=== PATIENT | male | born 1945 | race Caucasian/White ===

== ENCOUNTER 2019-05-12 11:49 | Inpatient (IN) | payer MEDICARE ==
--- NOTE | 2019-05-05 09:07 | HP ---
HISTORY AND PHYSICAL: DATE OF ADMISSION/SURGERY: 05/12/19 DATE OF OFFICE VISIT: 05/04/19 SURGEON: Ondina Tejeda MD * (DICTATED BY MOOK GIBBONS) PROCEDURE: Left total knee arthroplasty. CHIEF COMPLAINT: Left knee pain. HISTORY OF PRESENT ILLNESS: Mr. Mathews is a 73-year-old gentleman with severe end- stage osteoarthritis of the left knee. He has failed conservative treatment and elected to proceed with left total knee arthroplasty. PAST MEDICAL HISTORY: Hypertension, high cholesterol, GERD, and chronic mild renal disease. PAST SURGICAL HISTORY: Appendectomy, hernia repair, cholecystectomy, and cyst removal. CURRENT MEDICATIONS: 1. Fenofibrate 145 mg daily. 2. Lansoprazole 30 mg a day. 3. Labetalol 100 mg twice a day. 4. Amlodipine 10 mg a day. 5. Vitamin D. 6. Tadalafil 5 mg daily. 7. Aspirin 81 mg daily. 8. Citracal. ALLERGIES: No known drug allergies. FAMILY HISTORY: Diabetes, chronic kidney disease, and cancer. SOCIAL HISTORY: He is a 73-year-old gentleman, lives with his . He does not smoke or use drugs. REVIEW OF SYSTEMS: A complete 14-point review of systems was reviewed with the patient, is positive for GERD and mild kidney disease. He denies history of DVT , PE, hepatitis, HIV, or anesthesia problems. PHYSICAL EXAMINATION GENERAL: He is well developed, well nourished, in no acute distress. VITAL SIGNS: He stands 74 inches tall, weighs 275 pounds, blood pressure is 122 /78. His heart rate is 58. HEENT: Normocephalic, atraumatic. NECK: Supple. No palpable lymph nodes. PULMONARY: Lungs are clear to auscultation bilaterally. CARDIO: Regular rate and rhythm. Strong S1 and S2. ABDOMEN: Soft, nontender, nondistended. MUSCULOSKELETAL: Left lower extremity: The skin is intact. There are no open wounds or abrasions. There is a moderate effusion of the left knee joint. He has some tenderness along the medial joint line. Range of motion is 10 to 100 degrees of flexion with patellofemoral crepitus. He is able to dorsiflex and plantarflex. He has 2+ dorsalis pedis pulses and intact sensation. NEUROLOGICAL: He is alert and oriented x3. ASSESSMENT AND PLAN: Mr. Mathews is a 73-year-old gentleman with severe end- stage osteoarthritis of the left knee. He has failed conservative treatment and elected to proceed with left total knee arthroplasty. The surgery is scheduled for 05/12/[address] Tejeda discussed the risks and benefits of the surgery at today's visit and all of his questions were answered. He will follow up with Dr. Tejeda 2 weeks after the surgery. MOOK GIBBONS [id number]/[facility] #: [id number] [email or web address]
[~2019-05-12 11:49] MED LIST: Buffered Lidocaine 1% SYRIN* 1 ML/SYRINGE INTRADERM ONE; Lactated Ringers 1000 ML Bag* 1,000 ML IV SCH
--- OUTSIDE RECORDS SUMMARY | 2019-05-12 11:55 | XMS REPORT | Continuity of Care Document ---
:1945 External Reference #:[id number] Author Name Ondina Tejeda M.D. (transmitted by agent of provider Blanca Robbins) Address [address] [place] [address] Care Team Providers Name Role Phone Luigi Pereira MD - Internal Medicine Care Team Information Clear Coat Sprayer [phone] Problems Active Problems Provider Date Localized, primary osteoarthritis Ondina Tejeda M.D. Onset: 04/04/2019 Social History Type Date Description Comments Sex Unknown ETOH Use Denies alcohol use Tobacco Use Start: Unknown End: Patient is a former quit 39 years ago Unknown smoker Smoking Status Reviewed: 05/04/19 Patient is a former quit 39 years ago smoker Exercise Exercises sporadically Type/Frequency Allergies, Adverse Reactions, Alerts Description No Known Drug Allergies Medications Active Medications SIG Qnty Indications Ordering Provider Date Fenofibrate 1 by mouth every Unknown 145mg Tablets day Lansoprazole 1 by mouth every Unknown 30mg day Capsules Labetalol HCL take 1 tablet by Unknown 100mg mouth twice a day Tablets Amlodipine Besylate 1 by mouth every Unknown 10mg day Tablets Vitamin D2 take 50,000 units Unknown 2000Unit once a week Tablets Tadalafil 1 by mouth every Unknown 5mg Tablets day Ray Aspirin Ec Low Stopped Unknown Dose 81mg Tablets DR Immunizations Description No Information Available Vital Signs Date Vital Result Comment 05/04/2019 10:17am Height 74 inches 6'2" Weight 275.00 lb Heart Rate 58 /min BP Systolic 122 mmHg BP Diastolic 78 mmHg Pain Level 1 BMI (Body Mass Index) 35.3 kg/m2 04/04/2019 10:49am Height 74 inches 6'2" Weight 275.00 lb Heart Rate 65 /min BP Systolic 142 mmHg BP Diastolic 84 mmHg Respiratory Rate 16 /min Body Temperature 97.0 F Pain Level 3 BMI (Body Mass Index) 35.3 kg/m2 Results Description No Information Available Procedures Description No Information Available Medical Devices Description No Information Available Encounters Type Date Location Provider Dx Diagnosis Office Visit 04/04/2019 [facility] Ondina Tejeda, M25.562 Pain in left knee 10:45a at [facility] M25.462 Effusion, left knee M17.12 Unilateral primary osteoarthritis, left knee Assessments Date Code Description Provider 05/04/2019 M17.12 Unilateral primary osteoarthritis, left knee Ondina Tejeda M.D. 05/04/2019 M25.462 Effusion, left knee Ondina Tejeda M.D. 05/04/2019 M25.562 Pain in left knee Ondina Tejeda M.D. 04/04/2019 M25.562 Pain in left knee Ondina Tejeda M.D. 04/04/2019 M25.462 Effusion, left knee Ondina Tejeda M.D. 04/04/2019 M17.12 Unilateral primary osteoarthritis, left knee Ondina Tejeda M.D. Plan of Treatment Future Appointment(s):05/30/2019 10:00 am - Ondina Tejeda M.D. at [facility] at [place]0705/12/2019 2:30 pm - Anthony Bunch PA-C at [facility] at [place]1705/12/2019 2:30 pm - MOOK Santillan at [facility] at Lptlfx5405/12/2019 2:30 pm - Ondina Tejeda M.D. at [facility] at Ctfdsu9705/04/2019 - Ondina Tejeda M.D.M17.12 Unilateral primary osteoarthritis, left kneeFollow up:Follow up: 2 weeks after vpasvwzT62.462 Effusion, left kneeM25.562 Pain in left knee Functional Status Description No Information Available Mental Status Description No Information Available Referrals Description No Information Available
--- OUTSIDE RECORDS SUMMARY | 2019-05-12 11:55 | XMS REPORT | Continuity of Care Document ---
:1945 External Reference #:[id number] Author Name Ondina Tejeda M.D. (transmitted by agent of provider Shazia Moe) Address [address] [place] [address] Care Team Providers Name Role Phone Luigi Pereira MD - Internal Medicine Care Team Information [employer] Roller Problems Active Problems Provider Date Localized, primary osteoarthritis Ondina Tejeda M.D. Onset: 04/04/2019 Social History Type Date Description Comments Sex Unknown ETOH Use Denies alcohol use Tobacco Use Start: Unknown End: Patient is a former quit 39 years ago Unknown smoker Smoking Status Reviewed: 04/04/19 Patient is a former quit 39 years ago smoker Exercise Exercises sporadically Type/Frequency Allergies, Adverse Reactions, Alerts Description No Known Drug Allergies Medications Active Medications SIG Qnty Indications Ordering Provider Date Fenofibrate 1 by mouth every Unknown 145mg Tablets day Lansoprazole 1 by mouth every Unknown 30mg Capsules day Labetalol HCL take 1 tablet by Unknown 100mg Tablets mouth twice a day Amlodipine Besylate 1 by mouth every Unknown 10mg day Tablets Vitamin D2 take 50,000 Unknown 2000Unit Tablets units once a week Tadalafil 1 by mouth every Unknown 5mg Tablets day Ray Aspirin Ec Low Unknown Dose 81mg Tablets DR Immunizations Description No Information Available Vital Signs Date Vital Result Comment 04/04/2019 10:49am Height 74 inches 6'2" Weight 275.00 lb Heart Rate 65 /min BP Systolic 142 mmHg BP Diastolic 84 mmHg Respiratory Rate 16 /min Body Temperature 97.0 F Pain Level 3 BMI (Body Mass Index) 35.3 kg/m2 Results Description No Information Available Procedures Description No Information Available Medical Devices Description No Information Available Encounters Description No Information Available Assessments Date Code Description Provider 04/04/2019 M25.562 Pain in left knee Ondina Tejeda M.D. 04/04/2019 M25.462 Effusion, left knee Ondina Tejeda M.D. 04/04/2019 M17.12 Unilateral primary osteoarthritis, left knee Ondina Tejeda M.D. Plan of Treatment Future Appointment(s):05/04/2019 10:00 am [facility]12[facility] 2:30 pm - Ondina Tejeda M.D. at [facility]04/04/2019 - Ondina Tejeda M.D.M25.562 Pain in left kneeFollow up:Follow up: 7-10 days before [id number] Effusion, left kneeM17.12 Unilateral primary osteoarthritis, left knee Functional Status Description No Information Available Mental Status Description No Information Available Referrals Description No Information Available
--- OUTSIDE RECORDS SUMMARY | 2019-05-12 11:55 | XMS REPORT | Continuity of Care Document ---
:1945 Author Organization [facility] Care Team Providers Name Role Phone KRISTYN WILLIAMSON Admitting Physician KRISTYN WILLIAMSON Attending Physician KRISTYN WILLIAMSON Primary Care Physician Allergies and Intolerances No Known Allergies Medications RxNorm Medication Dose Route Instructions Start Date End Date Status 1191 Aspirin 81 mg oral orally every day Active 91187 Azithromycin (500 mg x 1 Active day, then 250 mg x 4 days) 5279632 Calcium Citrate 500 mg oral orally every day Active 2376 MG Effervescent Oral Tablet 4018 Ergocalciferol 1.25. mg oral orally every day Active 471509 Fenofibrate 150 MG 150 mg oral orally every day Active Oral Capsule 788279 irbesartan 150 MG 150 mg oral orally every day Active Oral Tablet 737181 lansoprazole 30 MG 30 mg oral orally every day Active Delayed Release at bedtime Oral Capsule 727948 Prednisone 20 MG 20 mg oral orally every day Active Oral Tablet (5 days) (administer with food or milk) 208928 tadalafil 5 MG Oral 5 mg oral orally every day Active Tablet Medications At Time Of Discharge RxNorm Medication Dose Route Instructions Start Date End Date Status 1191 Aspirin 81 mg oral orally every day Active 70315 Azithromycin (500 mg x 1 Active day, then 250 mg x 4 days) 3164209 Calcium Citrate 500 mg oral orally every day Active 2376 MG Effervescent Oral Tablet 4018 Ergocalciferol 1.25. mg oral orally every day Active 646204 Fenofibrate 150 MG 150 mg oral orally every day Active Oral Capsule 20000303 irbesartan 150 MG 150 mg oral orally every day Active Oral Tablet 601754 lansoprazole 30 MG 30 mg oral orally every day Active Delayed Release at bedtime Oral Capsule 210889 Prednisone 20 MG 20 mg oral orally every day Active Oral Tablet (5 days) (administer with food or milk) 118403 tadalafil 5 MG Oral 5 mg oral orally every day Active Tablet Problems Code Code System Problem Name Start Date End Date Status 873792122 SNOMED-CT Acute and chronic cholecystitis 07/16/2014 U Active 215001535 SNOMED-CT Neutrophilia 07/16/2014 U Active 252025531 SNOMED-CT Poorly controlled type 2 DM 07/16/2014 U Active 949851462 SNOMED-CT Good hypertension control 07/16/2014 U Active 66224364 SNOMED-CT Biliary sludge 07/16/2014 U Active Excision of dysplastic nevus from 2010 U Active back 726327454 SNOMED-CT Dysplastic nevus of skin 2010 U Active Negative Lexiscan for ischemia 2009 U Active 91395031 SNOMED-CT Acute pericarditis 2009 U Active 029517460 SNOMED-CT Patient in hospital 2009 U Active 68140350 SNOMED-CT Polyp of colon 2005 U Active 537614964 SNOMED-CT Colonoscopy abnormal 2006 U Active 70721309 SNOMED-CT Hypertensive disorder U Active 31570657 SNOMED-CT Hypercholesterolemia U Active 609165235 SNOMED-CT Gastroesophageal reflux disease U Active 3697657 SNOMED-CT Pericarditis U Active 873229817 SNOMED-CT Diabetic on diet only U U Active 880310260 SNOMED-CT Gastroesophageal reflux disease U U Active Procedures Code Code System Procedure Date 33915554 SNOMED CT Appendectomy U 15311726 SNOMED [address] Hernia repair U 007310263 SNOMED [address] Tonsillectomy U 070053601 SNOMED CT Tonsillectomy U 575200561 SNOMED CT Incisional hernia repair [address] Appendectomy [address] Esophagogastroduodenoscopy [address] Colonoscopy U Results Laboratory Results Order: COMPREHENSIVE PANEL Specimen Source : Body Site: Legend: (G,H) = High, (GG,HH,CH,#H) = Above High Threshold, (#,L) = Low, (##,CL,#L,LL) = Below Low Threshold, (C,CC,CA,#A,A) = Abnormal LOINC Test Result Flag Range Units Date 2951-2 1Sodium SerPl-sCnc 141 136-145 mmol/L 03/07/2019 08:42 2823-3 1Potassium SerPl-sCnc 4.5 3.5-5.2 mmol/L 03/07/2019 08:42 2075-0 1Chloride SerPl-sCnc 109 H 100-108 mmol/L 03/07/2019 08:42 8-9 1CO2 SerPl-sCnc 25 21-32 mmol/L 03/07/2019 08:42 2345-7 1Glucose SerPl-mCnc 129 H 70-100 mg/dL 03/07/2019 08:42 3094-0 1BUN SerPl-mCnc 15 7-21 mg/dL 03/07/2019 08:42 2160-0 1Creat SerPl-mCnc 1.3 0.6-1.3 mg/dL 03/07/2019 08:42 Interpretive Jacqueline: 1Normal Kidney Function or Mild Disease - GFR >OR= 60 Chronic Kidney Disease - GFR 15-59 Renal Failure - GFR < 15 GFR not calculated on patients under 18 years of age. Calculated (estimated) GFR is based on the MDRD Study equation, which assumes a steady state for creatinine. Estimated GFR may not be appropriate for medication dosing. 63848-9 1Ca-I SerPl-mCnc 9.8 8.5-10.8 mg/dL 03/07/2019 08:42 33530-0 1GFR/BSA.pred SerPl-ArVRat 56 03/07/2019 08:42 76823-0 1Bilirub Bld-mCnc 0.7 0.0-1.2 mg/dL 03/07/2019 08:42 2885-2 1Prot SerPl-mCnc 6.4 6.4-8.2 gm/dL 03/07/2019 08:42 1751-7 1Albumin SerPl-mCnc 4.3 3.2-4.6 gm/dL 03/07/2019 08:42 6768-6 1ALP SerPl-cCnc 47 40-150 U/L 03/07/2019 08:42 1742-6 1ALT SerPl-cCnc 22 0-55 U/L 03/07/2019 08:42 1920-8 1AST SerPl-cCnc 24 5-37 U/L 03/07/2019 08:42 Performing Lab Footnotes:[facility] - [id number] - [address] [place] [address] DEYANIRA BLACKMANOMD1 Social History Code Code System Social History Observation Description Dates Observed 800613947 SNOMED CT Current Smoking Status Never smoker UNK AdministrativeGender Sex Assigned At Unknown Vital Signs No data in the system Goals Section No data in the system Health Concerns No data in the systemEncounter Diagnosis Date Code Code System Diagnosis Status E11.9 ICD10 TYPE 2 DM WITHOUT COMPLICATIONS Active Advance Directives *RHIO - CONSENT IS YES Directive Type Effective Date Merchandise Marker Notes Supporting Document Name Address Phone No Directive Type 10/10/2016 9:59:40 Not Specified Not Specified Not Specified None No specified [facility] Directive Type Effective Date Merchandise Marker Notes Supporting Document Name Address Phone No Directive 07/16/2014 Not Specified Not Specified Not Specified juan tyrone No Type specified 10:45:21 AM () [phone] [facility] Directive Type Effective Date Merchandise Marker Notes Supporting Document Name Address Phone No Directive Type 07/16/2014 Not Specified Not Specified Not Specified None No specified 10:45:06 AM Encounters Encounter Diagnosis Location Date TYPE 2 DM WITHOUT COMPLICATIONS [facility] 03/07/2019 Functional Status No data in the system Immunizations Vaccine Code Code System Vaccine Name Date Status UNSURE TETANUS Completed INFLUENZA 2016 Completed Medical Equipment No data in the system Mental Status No data in the system Assessment and Plan Assessments No data in the systemPlan Of Treatment No data in the systemPending Tests No data in the system Hospital Discharge Instructions No data in the system Reason for Visit No data in the system
--- OUTSIDE RECORDS SUMMARY | 2019-05-12 11:55 | XMS REPORT | Continuity of Care Document ---
:1945 Author Organization [facility] Care Team Providers Name Role Phone KRISTYN WILLIAMSON Admitting Physician KRISTYN WILLIAMSON Attending Physician KRISTYN WILLIAMSON Primary Care Physician Allergies and Intolerances No Known Allergies Medications RxNorm Medication Dose Route Instructions Start Date End Date Status 1191 Aspirin 81 mg oral orally every day Active 67092 Azithromycin (500 mg x 1 Active day, then 250 mg x 4 days) 1753460 Calcium Citrate 500 mg oral orally every day Active 2376 MG Effervescent Oral Tablet 4018 Ergocalciferol 1.25. mg oral orally every day Active 557992 Fenofibrate 150 MG 150 mg oral orally every day Active Oral Capsule 019705 irbesartan 150 MG 150 mg oral orally every day Active Oral Tablet 099327 lansoprazole 30 MG 30 mg oral orally every day Active Delayed Release at bedtime Oral Capsule 424526 Prednisone 20 MG 20 mg oral orally every day Active Oral Tablet (5 days) (administer with food or milk) 826241 tadalafil 5 MG Oral 5 mg oral orally every day Active Tablet Medications At Time Of Discharge RxNorm Medication Dose Route Instructions Start Date End Date Status 1191 Aspirin 81 mg oral orally every day Active 27689 Azithromycin (500 mg x 1 Active day, then 250 mg x 4 days) 0787756 Calcium Citrate 500 mg oral orally every day Active 2376 MG Effervescent Oral Tablet 4018 Ergocalciferol 1.25. mg oral orally every day Active 251382 Fenofibrate 150 MG 150 mg oral orally every day Active Oral Capsule 20000303 irbesartan 150 MG 150 mg oral orally every day Active Oral Tablet 857514 lansoprazole 30 MG 30 mg oral orally every day Active Delayed Release at bedtime Oral Capsule 183412 Prednisone 20 MG 20 mg oral orally every day Active Oral Tablet (5 days) (administer with food or milk) 458788 tadalafil 5 MG Oral 5 mg oral orally every day Active Tablet Problems Code Code System Problem Name Start Date End Date Status 684081975 SNOMED-CT Acute and chronic cholecystitis 07/16/2014 U Active 424473887 SNOMED-CT Neutrophilia 07/16/2014 U Active 169297325 SNOMED-CT Poorly controlled type 2 DM 07/16/2014 U Active 931929754 SNOMED-CT Good hypertension control 07/16/2014 U Active 12927467 SNOMED-CT Biliary sludge 07/16/2014 U Active Excision of dysplastic nevus from 2010 U Active back 880414349 SNOMED-CT Dysplastic nevus of skin 2010 U Active Negative Lexiscan for ischemia 2009 U Active 32217512 SNOMED-CT Acute pericarditis 2009 U Active 226023919 SNOMED-CT Patient in hospital 2009 U Active 28991850 SNOMED-CT Polyp of colon 2005 U Active 583852641 SNOMED-CT Colonoscopy abnormal 2006 U Active 84404155 SNOMED-CT Hypertensive disorder U Active 24349395 SNOMED-CT Hypercholesterolemia U Active 159132933 SNOMED-CT Gastroesophageal reflux disease U Active 2154109 SNOMED-CT Pericarditis U Active 864668533 SNOMED-CT Diabetic on diet only U U Active 780776845 SNOMED-CT Gastroesophageal reflux disease U U Active Procedures Code Code System Procedure Date 69766151 SNOMED CT Appendectomy U 90375754 SNOMED [place] Hernia repair U 601456006 SNOMED CT Tonsillectomy U 804553462 SNOMED CT Tonsillectomy U 99728[address] Incisional hernia repair [address] Appendectomy [address] Esophagogastroduodenoscopy [address] Colonoscopy U Results Laboratory Results Order: CBC Specimen Source: Body Site: Legend: (G,H) = High, (GG,HH,CH,#H) = Above High Threshold, (#,L) = Low, (##,CL, #L,LL) = Below Low Threshold, (C,CC,CA,#A,A) = Abnormal LOINC Test Result Flag Range Units Date 6690-2 1WBC # Bld Auto 7.1 4.8-10.8 K/uL 04/20/2019 09:05 53847-3 1RBC # Bld 5.34 4.60-6.20 M/uL 04/20/2019 09:05 718-7 1Hgb Bld-mCnc 15.5 13.5-18.0 gm/dL 04/20/2019 09:05 4544-3 1Hct VFr Bld Auto 44.9 41.0-53.0 % 04/20/2019 09:05 787-2 1MCV RBC Auto 84.1 80.0-100.0 fL 04/20/2019 09:05 16815-5 1MCHC RBC-mCnc 34.4 30.0-36.5 % 04/20/2019 09:05 87873-6 1MCH RBC Qn 29.0 27.0-34.0 pg 04/20/2019 09:05 16702-6 1RDW RBC 12.8 11.0-15.0 % 04/20/2019 09:05 777-3 1Platelet # Bld Auto 187 130-450 K/uL 04/20/2019 09:05 29806-7 1PMV Bld Auto 8.3 6.0-12.0 fL 04/20/2019 09:05 Performing Lab Footnotes:[facility] - [id number] - [address] [place] [address] DEYANIRA HILL Order: COMPREHENSIVE PANEL Specimen Source: Body Site: Legend: (G,H) = High, (GG,HH,CH,#H) = Above High Threshold, (#,L) = Low, (##,CL,#L,LL) = Below Low Threshold, (C,CC,CA,#A,A) = Abnormal LOINC Test Result Flag Range Units Date 2951-2 1Sodium SerPl-sCnc 140 136-145 mmol/L 04/20/2019 09:05 2823-3 1Potassium SerPl-sCnc 4.4 3.5-5.2 mmol/L 04/20/2019 09:05 5-0 1Chloride SerPl-sCnc 107 100-108 mmol/L 04/20/2019 09:05 8-9 1CO2 SerPl-sCnc 23 21-32 mmol/L 04/20/2019 09:05 2345-7 1Glucose SerPl-mCnc 151 H 70-100 mg/dL 04/20/2019 09:05 3094-0 1BUN SerPl-mCnc 19 7-21 mg/dL 04/20/2019 09:05 2160-0 1Creat SerPl-mCnc 1.3 0.6-1.3 mg/dL 04/20/2019 09:05 Interpretive Jacqueline: 1Normal Kidney Function or Mild Disease - GFR >OR= 60 Chronic Kidney Disease - GFR 15-59 Renal Failure - GFR < 15 GFR not calculated on patients under 18 years of age. Calculated (estimated) GFR is based on the MDRD Study equation, which assumes a steady state for creatinine. Estimated GFR may not be appropriate for medication dosing. 93464-1 1Ca-I SerPl-mCnc 9.8 8.5-10.8 mg/dL 04/20/2019 09:05 68338-0 1GFR/BSA.pred SerPl-ArVRat 54 04/20/2019 09:05 77652-1 1Bilirub Bld-mCnc 0.7 0.0-1.2 mg/dL 04/20/2019 09:05 2885-2 1Prot SerPl-mCnc 6.6 6.4-8.2 gm/dL 04/20/2019 09:05 1751-7 1Albumin SerPl-mCnc 4.4 3.2-4.6 gm/dL 04/20/2019 09:05 6768-6 1ALP SerPl-cCnc 49 40-150 U/L 04/20/2019 09:05 1742-6 1ALT SerPl-cCnc 26 0-55 U/L 04/20/2019 09:05 1920-8 1AST SerPl-cCnc 20 5-37 U/L 04/20/2019 09:05 Performing Lab Footnotes:[facility] - [id number] - [address] [place] [address] DEYANIRA BLACKMANOMD1 Order: PT/INR Specimen Source: Body Site: Legend: (G,H) = High, (GG,HH, CH,#H) = Above High Threshold, (#,L) = Low, (##,CL,#L,LL) = Below Low Threshold , (C,CC,CA,#A,A) = Abnormal LOINC Test Result Flag Range Units Date 59007-31 1PT Time PPP 12.8 H 9.4-12.4 sec 04/20/2019 09:05 6301-6 1INR PPP 1.2 04/20/2019 09:05 Interpretive Jacqueline: 1 INR INTERPERTATION 2.0-3.0 THERAPEUTIC MONITORING 2.5-3.5 HEART VALVE REPLACEMENT Performing Lab Footnotes:[facility] - [id number] - [address] [place] [address] DEYANIRA BLACKMANOMD1 Order: URINALYSIS ROUTINE Specimen Source: Body Site: Legend: (G,H) = High, (GG,HH,CH,#H) = Above High Threshold, (#,L) = Low, (##,CL,#L,LL) = Below Low Threshold, (C,CC,CA,#A,A) = Abnormal LOINC Test Result Flag Range Units Date 5778-6 1Color Ur YELLOW 04/20/2019 09:05 58627-9 1Turbidity Ur Ql CLEAR CLEAR 04/20/2019 09:05 5811-5 1Sp Gr Ur Strip 1.015 1.000-1.030 04/20/2019 09:05 5803-2 1pH Ur Strip 6.5 5.0-8.0 04/20/2019 09:05 96823-8 1WBC # Ur Strip NEGATIVE NEGATIVE 04/20/2019 09:05 5802-4 1Nitrite Ur Ql Strip NEGATIVE NEGATIVE 04/20/2019 09:05 5804-0 1Prot Ur Strip-mCnc NEGATIVE NEGATIVE mg/dL 04/20/2019 09:05 5792-7 1Glucose Ur Strip-mCnc NORMAL NORMAL mg/dL 04/20/2019 09:05 5797-6 1Ketones Ur Strip-mCnc NEGATIVE NEGATIVE mg/dL 04/20/2019 09:05 26195-7 1Urobilinogen Ur NORMAL NORMAL mg/dL 04/20/2019 09:05 Strip-mCnc 72462-4 1Bilirub Ur Strip-mCnc NEGATIVE NEGATIVE mg/dL 04/20/2019 09:05 5794-3 1Hgb Ur Ql Strip TRACE ! NEGATIVE 04/20/2019 09:05 Performing Lab Footnotes:[facility] - [id number] - [address] [place] [address] DEYANIRA HILL Order: URINE MICROSCOPIC Specimen Source: Body Site: Legend: (G,H) = High, (GG,HH,CH,#H) = Above High Threshold, (#,L) = Low, (##,CL,#L,LL) = Below Low Threshold, (C,CC,CA,#A,A) = Abnormal LOINC Test Result Flag Range Units Date 1URINE MICROSCOPIC EXAM 5821-4 1WBC #/area UrnS HPF 0-2 0-2 /HPF 04/20/2019 09:05 5808-1 1RBC # UrnS HPF 0-2 ! NONE SEEN /HPF 04/20/2019 09:05 Interpretive Jacqueline: 1The [employer] has defined Microscopic Hematuria as 3 or more RBC per high powered field from a single positive urinalysis with microscopy. 47843-0 1Bacteria UrnS Ql Micro NONE SEEN NONE SEEN /HPF 04/20/2019 09: 05 5787-7 1Epi Cells #/area UrnS HPF RARE ! NONE SEEN /HPF 04/20/2019 09:05 8247-9 1Mucous Threads UrnS Ql Micro TRACE ! NONE SEEN /HPF 04/20/2019 09:05 Performing Lab Footnotes:[facility] - [id number] - [address] [place] [address] DEYANIRA Segovia RICCIOMD1 Social History Code Code System Social History Observation Description Dates Observed 235056261 SNOMED CT Current Smoking Status Never smoker UNK AdministrativeGender Sex Assigned At Unknown Vital Signs No data in the system Goals Section No data in the system Health Concerns No data in the systemEncounter Diagnosis Date Code Code System Diagnosis Status I10 ICD10 ESSENTIAL PRIMARY HYPERTENSION Active Advance Directives *RHIO - CONSENT IS YES Directive Type Effective Date [employer] Supervisor Notes Supporting Document Name Address Phone No Directive Type 10/10/2016 9:59:40 Not Specified Not Specified Not Specified None No specified AM [facility] Directive Type Effective Date [employer] Supervisor Notes Supporting Document Name Address Phone No Directive 07/16/2014 Not Specified Not Specified Not Specified juan [email or web address] No Type specified 10:45:21 AM () [phone] LIV[facility] Directive Type Effective Date [employer] Supervisor Notes Supporting Document Name Address Phone No Directive Type 07/16/2014 Not Specified Not Specified Not Specified None No specified 10:45:06 AM Encounters Encounter Diagnosis Location Date ESSENTIAL PRIMARY HYPERTENSION [facility] 04/20/2019 Functional Status No data in the system Immunizations Vaccine Code Code System Vaccine Name Date Status UNSURE TETANUS Completed INFLUENZA 2015 Completed Medical Equipment No data in the system Mental Status No data in the system Assessment and Plan Assessments No data in the systemPlan Of Treatment No data in the systemPending Tests No data in the system Hospital Discharge Instructions No data in the system Reason for Visit No data in the system
--- OUTSIDE RECORDS SUMMARY | 2019-05-12 11:55 | XMS REPORT | Continuity of Care Document ---
:1945 External Reference #:[id number] Author Name Ondina Tejeda M.D. (transmitted by agent of provider Jess Orozco) Address [address] [place] [address] Care Team Providers Name Role Phone Luigi Pereira MD - Internal Medicine Care Team Information [employer]ctor Problems Active Problems Provider Date Localized, primary [...] knee Ondina Tejeda M.D. Plan of Treatment 04/04/2019 - Ondina Tejeda M.D.M25.562 Pain in left kneeNew Xrays:Knee 3 Views LT, Ordered: 04/04/19Follow up:Follow up: 7-10 days before swxrgilP65.462 Effusion, left kneeM17.12 Unilateral primary osteoarthritis, left knee Functional Status Description No Information Available Mental Status Description No Information Available Referrals Description No Information Available
[2019-05-12] MEDS ORDERED: Midazolam* 1 MG/ML 2 ML VIAL (2 MG) ONE (13:06)
[2019-05-12] MEDS ORDERED: Propofol* 10 MG/ML 20 ML BTL ONE ×3 (13:06→17:47)
[2019-05-12] MEDS ORDERED: ROPIVACAINE 5 MG/ML 30 ML BTL (0.5%) ONE ×2 (13:06→14:40)
[2019-05-12] MEDS ORDERED: Lidocaine 2% PF * 5 ML VIAL ONE (13:06)
[2019-05-12] MEDS ORDERED: fentaNYL* 50 MCG/ML 2 ML VIAL (100 MCG VIAL) ONE (13:07)
[2019-05-12] MEDS ORDERED: Dexmedetomidine* 200 MCG/2 ML 2 ML VIAL ONE (13:07)
[2019-05-12] MEDS ORDERED: ceFAZolin 2 GM in NS PREMIX(*) 2 GM/100 ML BAG IVPB ONE (13:33)
[2019-05-12] MEDS ORDERED: Bupivacaine 0.5% SDV PF* 30ML VIAL ONE (15:21)
[2019-05-12] MEDS ORDERED: Propofol* 500 MG/50 ML BTL ONE ×2 (15:32→16:36)
[2019-05-12] MEDS ORDERED: KETAMINE HCL* 50 MG/ML 10 ML VIAL ONE (15:33)
[2019-05-12] MEDS ORDERED: HYDROmorphone INJ1* 1 MG/ML SYRINGE IV PRN (16:24)
[2019-05-12] MEDS ORDERED: Naloxone* 0.4 MG/ML 1 ML VIAL IV PRN (16:24)
[2019-05-12] MEDS ORDERED: Acetaminophen IV 1GM/100ML * 10 MG/ML VIAL IVPB ONE (16:24)
[2019-05-12] MEDS ORDERED: Ketorolac INJ* 30 MG/ML 1 ML VIAL IV PRN (16:24)
[2019-05-12] MEDS ORDERED: oxyCODONE TAB* 5 MG TAB PO PRN (16:24)
[2019-05-12] MEDS ORDERED: Acetaminophen TAB* 325 MG PO PRN (17:14)
[2019-05-12] MEDS ORDERED: oxyCODONE/Acetamin 5/325 MG* TAB PO PRN (17:14)
[2019-05-12] MEDS ORDERED: Cyclobenzaprine TAB* 10 MG PO PRN (17:14)
[2019-05-12] MEDS ORDERED: Ondansetron ODT TAB* 4 MG PO PRN (17:14)
[2019-05-12] MEDS ORDERED: Morphine INJ* 2 MG/ML 1 ML SYRINGE (TWO MG - NEW SYRINGE VERSION) IV PRN (17:14)
[2019-05-12] MEDS ORDERED: diPHENhydraMINE IV* 50 MG/ML 1 ml VIAL (BENADRYL) IV PRN (17:14)
[2019-05-12] MEDS ORDERED: Magnesium Hydroxide LIQ* 30 ML UDC PO PRN (17:14)
[2019-05-12] MEDS ORDERED: Ondansetron INJ* 2 MG/ML VIAL IV PRN (17:14)
[2019-05-12] MEDS ORDERED: diPHENhydraMINE PO* 25 MG PO PRN (17:14)
--- NOTE | 2019-05-12 18:47 | CONSULT ---
Consult Consult: HOSPITALIST CONSULTATION Requesting Provider: Dr. Tejeda Reason for Consultation: Medical co-management HPI: Mr Mathews is a 73 yo M who has a h/o HTN, HLD, mild CKD (? stage) and GERD who is admitted following an elective L TKA. He unfortunately failed conservative therapy for his severe OA. Currently he denies any pain in the knee. All he repeatedly states is "this is strange, I feel woozy." PMHx: HTN, HLD, GERD, mild CKD PSHx: L TKA, appendectomy, hernia repair, cholecystectomy, cyst removal ALL: NKDA Meds: current and home medication list personally reviewed FamHx: Both parents are , he could not tell me any of their medical history. SocHx: Pt does not smoke or drink alcohol. He is . ROS: No c/o chest pain, SOB, abdominal issues. No pain in the L knee. The rest of the ROS is negative. PE: BP 132/73 HR 60 RR 12 T 98.2 O2 sat 97% on RA gen: Elderly male lying in bed, awake, NAD HEENT: EOMI, oropharynx is clear Card: nl S1S2 RRR, no LE edema Lungs: CTA anteriorly Abd: BS+ soft, NT, ND Ext: L LE in post-op dressing, moves upper extremities symmetrically Neuro: UE strength normal, LE strength not tested at this time Psych: Alert, mildly confused A/P: Mr Mathews is a 73 yo M who has a h/o HTN, HLD, CKD and severe OA of the L knee who underwent elective L total knee arthroplasty with Dr. Tejeda and is now being seen for medical consultation. 1. s/p L TKA: post-operative management per orthopedics including pain control and DVT prophylaxis. 2. HTN: BP is under good control. Will resume labetolol but will place hold parameters. Hold amlodipine for now. 3. HLD: Hold fenofibrate until discharge. 4. CKD: Will get BMP tomorrow AM. 5. Hospitalist service will continue to follow.
[2019-05-12] MEDS ORDERED: Acetaminophen IV 1GM/100ML * 100 ML ONE (19:17)
[2019-05-12] MEDS ORDERED: Ketorolac INJ* 30 MG/ML 1 ML VIAL ONE (19:17)
[2019-05-12] MEDS: Lactated Ringers 1000 ML Bag* 1,000 ML IV SCH (20:18)
--- NOTE | 2019-05-12 20:25 | OP ---
Operative Report - Blank - Operative Report Date of Operation: 05/12/19 Note: ROSA MCCLOUD 1945 Date of Surgery: 05/12/19 Ondina Tejeda MD Professional Skater: Ziyad DELVALLE did help throughout the procedure with preparation of the knee, wound retraction, manipulation of the knee, and wound closure. Anesthesiologist: Joel Borden MD Anesthesia Type: Spinal Preoperative Diagnosis: Left severe degenerative osteoarthritis of the knee Postoperative Diagnosis: As above Procedure Performed: Left Total Knee Arthroplasty Tourniquet time: 52 minutes Complications: None Specimen: Bone and cartilage from the left knee joint sent to pathology. Hardware Used: Cemented Quigley and Nephew total knee hardware was used - For the femur a size 8 left oxinium legion posterior stabilized femoral component, for the tibia a size 7 left china II tibial baseplate, for the insert a size 9mm 7 -8 posterior stabilized articular polyethylene insert, and for the patella a size 38 3-peg all poly patella. Brief History/Indication: ROSA MCCLOUD was known in clinic and had a history of severe left knee pain and swelling. He failed conservative treatment with anti-inflammatories, pain pills, intra-articular injections and physical therapy. He elected to undergo left total knee arthroplasty due to continued pain and decreased quality of life. Radiographs showed severe end stage osteoarthritis of the knee with bone on bone contact. Informed consent was obtained from the patient. He understood the risks of surgery included but were not limited to: bleeding, infection, damage to nearby structures, intraoperative fracture, nerve palsy, failure of the hardware, early loosening, knee stiffness or loss of motion, anesthesia complications, stroke, heart attack , blood clot and . He wished to proceed. Intra-Operative Findings: Intraoperatively the patient was noted to have severe loss of cartilage in all 3 compartments of the knee. Description of the Procedure: ROSA MCCLOUD was identified in the preanesthesia unit. His left knee was marked as the correct operative side. Informed consent was signed and placed in the chart. The patient was taken to the operating room and placed under anesthesia without complication. A quintero catheter was placed. A tourniquet was placed on the left thigh. The left lower extremity was prepped and draped in the usual sterile fashion. Preoperative time-out was made to correctly identify the patient, side and site. Appropriate intraoperative antibiotics were given within one hour of incision. Tourniquet was inflated. A midline incision was made and carried sharply down to the extensor mechanism. A new 10 blade was used to make a standard medial parapatellar arthrotomy. The patella was subluxed laterally. Electrocautery was used to dissect soft tissue off the superomedial tibia to the midsagittal plane. The knee was flexed up. The anterior horn of the lateral meniscus and the ACL were sharply incised. A drill was used to enter the distal femur. The intramedullary distal femoral cutting guide was pinned on the distal femur. The oscillating saw was used to make the distal femoral cut. The external rotation guide was pinned on the distal femur and the distal femur was sized to a size 8. The size 8 multi-cutting jig was pinned on the distal femur. The oscillating saw was used to make the appropriate 4 chamfer cuts. Next the PCL was completely released. The extramedullary tibial cutting guide was pinned on the proximal tibia and the oscillating saw was used to make the proximal tibial cut perpendicular to the mechanical axis of the tibia. The bone was carefully removed. The knee was brought out into full extension. The spacer block was placed and had excellent fit with the knee in full extension. The medial and lateral ligaments were well balanced. The flexion and extension gaps were well balanced. The knee was flexed up. Lamina net applications developer was placed both medially and laterally. Any remaining meniscus was removed with electrocautery. Curved osteotome was used to remove any posterior osteophytes. The tibial tray and drop gilson were placed and confirmed a satisfactory tibial cut. The size 8 left femoral trial was impacted onto the distal femur. This trial had excellent fit and stability. The box for the posterior stabilized implant was prepared using a box cut osteotome and a reamer. Next a tibial tray trial and 9 mm insert trial was placed. The knee was taken through a range of motion and had full extension to 130 degrees of flexion. Patellofemoral tracking was satisfactory. The patella was inverted and sized to a size 38. Three peg holes were drilled through the size 38 drill guide. The trial patella was placed and the knee was taken through a range of motion. There was satisfactory patellofemoral tracking. All trials were removed. The tibia was subluxed anteriorly and sized to a size 7. The proximal tibial was prepared with a size 7 keel punch. All bony cut surfaces were irrigated with sterile saline and dried. Final implants were cemented into place starting with the tibia, followed by the femur, and last the patella. A 9 mm insert trial was placed and the knee was brought into full extension. Tourniquet was turned down and the knee was copiously irrigated with sterile saline. Electrocautery was used to obtain meticulous hemostasis. Once the cement had fully cured, the insert trial was removed. Any excess cement was removed from around the hardware and capsule. Final insert chosen was a 9 mm posterior stabilized [place] II articular insert size 7-8. Stability of the insert was checked and noted to be stable. The extensor mechanism was closed using number 1 vicryls. The rest of the incision was closed in a layered fashion using 0 and 2-0 vicryls. The skin was closed using 3-0 nylon suture. Sterile xeroform, 4x4s and webril were used to cover the incision. Saji wrap and cold pack were used to cover the dressings. The patients anesthesia was reversed without difficulty. He was taken to the PACU in stable condition. Intended weight-bearing will be as tolerated.
[2019-05-12] MEDS: Docusate CAP* 100 MG PO SCH (21:13)
[2019-05-12] MEDS: Labetalol TAB* 100 MG PO SCH (21:13)
[2019-05-12] MEDS: Magnesium Hydroxide LIQ* 30 ML UDC PO SCH (22:49)
[2019-05-12] MEDS: ceFAZolin 1 GM ADVAN(*) 1 GM in NS 0.9% 50 ML* 50 ML IVPB SCH (23:27)
[2019-05-13] MEDS: oxyCODONE/Acetamin 5/325 MG* TAB PO PRN ×2 (00:20→04:26)
[2019-05-13 05:49] LABS: Hematocrit 41 % (42-52); Hemoglobin 13.6 g/dL (14.0-18.0); Mean Platelet Volume 8.6 fL (7.4-10.4); Platelet Count 154 10^3/uL (150-450)
[2019-05-13 06:14] LABS: BUN/Creatinine Ratio 15.5 (8-20); Calcium 9.1 mg/dL (8.6-10.3); EGFR African American 66.2 (>60); EGFR Non-African American 54.7 (>60); Potassium 4.2 mmol/L (3.5-5.0)
[2019-05-13] MEDS: Lactated Ringers 1000 ML Bag* 1,000 ML IV SCH (06:38)
[2019-05-13] MEDS: ceFAZolin 1 GM ADVAN(*) 1 GM in NS 0.9% 50 ML* 50 ML IVPB SCH ×2 (07:55→15:28)
[2019-05-13] MEDS: oxyCODONE TAB* 5 MG TAB PO PRN ×2 (08:03→13:19)
[2019-05-13] MEDS ORDERED: Calcium/Vitamin D TAB 250/125* TAB PO SCH (09:00)
[2019-05-13] MEDS ORDERED: Vitamin THERAPEUTIC TAB PO SCH (09:00)
[2019-05-13] MEDS ORDERED: Apixaban* 2.5 MG TAB PO SCH (09:00)
[2019-05-13] MEDS ORDERED: Pantoprazole TAB * 40 MG TAB PO SCH (09:00)
[2019-05-13] MEDS: Labetalol TAB* 100 MG PO SCH (10:14)
[2019-05-13] MEDS: Magnesium Hydroxide LIQ* 30 ML UDC PO SCH (10:15)
[2019-05-13] MEDS: Docusate CAP* 100 MG PO SCH (10:15)
--- NOTE | 2019-05-13 11:31 | PN ---
Progress Note - Progress Note Date of Service: 05/13/19 SOAP: Subjective: [Pt was seen in chair today. Pt states that he is doing well. He is eating breakfast. Has not had physical therapy yet. He states that he would like to go home tonight and sleep in his own bed. He denies any chest pain, sob, nausea or vomiting. ] Objective: [General: Pt is alert and oriented x 3. NAD. MSK, Left knee dressing is c/d/i. Calf is soft and non tender. NVI. +df/pf. Dressing changed. Incision is c/d/i Vital Signs Temp 97.7 F 05/13/19 12:03 Pulse 88 05/13/19 12:03 Resp 18 05/13/19 13:19 BP 157/64 05/13/19 12:03 Pulse Ox 98 05/13/19 08:10 Intake & Output 05/12/19 05/13/19 05/13/19 18:59 06:59 18:59 Intake Total 1200 1890 Output Total 1000 300 Balance 1200 890 -300 Weight 271 lb Intake: IV Fluids 1200 990 LR 1200 990 Oral 900 Output: Urine 300 Weiss 1000 ] Assessment: [S/P LTKA ] Plan: [Continue with PT Continue with current pain medication Eliquis 2.5 bid x 30 days Possible DC this afternoon ]
--- NOTE | 2019-05-13 15:05 | DS ---
Orthopedic Discharge Summary - Discharge Summary Date of Admission:05/12/19 Date of Discharge: 05/13/2019 Date of Surgery: 05/12/19 Attending Orthopedic Provider: Dr. Tejeda Pre-operative Diagnosis: Left knee osteoarthritis Operative Procedure: Left total knee arthroplasty Disposition of Patient: Home Condition of Patient: Good History: ROSA MCCLOUD is a 73 year old M with years of increasingly severe left knee pain. Patient has failed conservative management and has elected to undergo a left total knee replacement Hospital Course: ROSA was admitted to [facility] on 05/12/19. Patient underwent a left total knee arthroplasty without complication followed by a brief recovery in PACU and transfer to the Short Stay Surgical Unit in stable condition. Our hospitalist service, physical therapy and occupational therapy also participated in this patients care. Post-op day 1: patient was alert and in no acute distress. Dressing was clean, dry and intact. Operative extremity dorsiflexion and plantarflexion intact, sensation intact to light touch distally. Dressing was changed, incision was clean, dry and intact. Patient was deemed to be medically and orthopedically stable for discharge. Physical therapy goals were met. Home Medications Medication Instructions Recorded Confirmed Type Amlodipine Besylate [Norvasc] 10 mg PO QAM 05/04/19 05/12/19 History Aspirin [Aspirin Childrens 81 MG] 1 tab PO QAM 05/04/19 05/12/19 History Calcium Citrate/Vitamin D3 1 tab PO QAM 05/04/19 05/12/19 History [Citracal-Vit D3 200 mg-250 Tab] Drisdol CAP* 1.25 cap PO WEEKLY 05/04/19 05/12/19 History Fenofibrate 145 mg PO QAM 05/04/19 05/12/19 History Labetalol TAB* [Trandate TAB*] 100 mg PO BID 05/04/19 05/12/19 History Lansoprazole [Prevacid] 30 mg PO QAM 05/04/19 05/12/19 History Tadalafil 5 mg PO DAILY 05/04/19 05/12/19 History Apixaban* [Eliquis*] 2.5 mg PO BID tab 05/13/19 Rx oxyCODONE/Acetamin 5/325 MG* 1 tab PO Q4H PRN tab 05/13/19 Rx [Percocet 5/325 TAB*] oxyCODONE/Acetamin 5/325 MG* 2 tab PO Q4H PRN tab 05/13/19 Rx [Percocet 5/325 TAB*] Discharge Instructions following Orthopedic Surgery: Activity: * Weight Bearing as tolerated * Continue physical therapy and occupational therapy exercises as shown Wound care: * OK to shower on post-op day 3, no bathing, swimming, or submerging wound. * Use gentle soap, pat dry. Cover with gauze, NICOLE wrap or tape. * Visiting home nurse to do wound checks. Call Orthopedic office for: * Increased drainage * Redness * Increased pain * Fever Go to ER with shortness of breath or chest pain. Diet: * Regular diet * Increase fluids and fiber to prevent constipation. * Continue to use stool softeners, call office if no bowel motion within 48 hours. Medications See Home Medication List in your packet for medications that you should take after discharge. DVT Prophylaxis: Eliquis Dosin.5 mg, 1 tab every 12 hours x 30 days Pain Control: Percocet Dosin/325 mg 1-2 tabs by mouth every 4-6 hours as needed for pain. Maximum of 10 tabs per day. Please note that Percocet contains Tylenol (acetaminophen). Maximum daily dose of Tylenol is 4000 mg from all sources. Antibiotics are required prior to any dental work. FOLLOW UP: Follow up with [Nikhil] Within 10-14 days, call for appointment Please call our office with any questions or concerns ([phone])
[2019-05-13 15:55] VITALS: BP 165/79
[2019-05-14] MEDS ORDERED: Bisacodyl SUPP* 10 MG SUPP PR PRN (17:14)
== END 2019-05-13 17:01 | disposition home health service (06) | DRG 470 ==
LOC: AA 11:49 → SSU 17:14
PROVIDERS: ADMIT Orthopaedic Surgery Adult Reconstructive Orthopaedic Surgery; ATTEND Orthopaedic Surgery Adult Reconstructive Orthopaedic Surgery
PROC: 0SRD0J9 Replacement of Left Knee Joint with Synthetic Substitute, Cemented, Open Approach (ICD-10-PCS; principal; 2019-05-12 15:00)
DX: M17.12 Unilateral primary osteoarthritis, left knee (principal); I12.9 Hypertensive chronic kidney disease with stage 1 through stage 4 chronic kidney disease, or unspecified chronic kidney disease; N18.9 Chronic kidney disease, unspecified; E78.00 Pure hypercholesterolemia, unspecified; K21.9 Gastro-esophageal reflux disease without esophagitis; M25.762 Osteophyte, left knee; Z79.82 Long term (current) use of aspirin; Z79.899 Other long term (current) drug therapy; Z83.3 Family history of diabetes mellitus; Z84.1 Family history of disorders of kidney and ureter; Z80.9 Family history of malignant neoplasm, unspecified
CPT/HCPCS: 36415; 80048; 85014; 85018; 85049; A9270-GY; C1776; G8978-GP-CJ; G8979-GP-CI; J0690; J1885; J2250; J2704; J2795; J3010; J3490